=== PATIENT | female | born 1945 | race African-American/Black ===

== ENCOUNTER 2018-09-17 12:05 | Observation (INO) | payer MEDICARE, BC, MEDICAID ==
[2018-09-17 12:41] LABS: #Eosinphils 0.1 thou/uL (0.0-0.7); #Monocytes 0.4 thou/uL (0.11-0.59); #Neutrophils 4.3 thou/uL (1.40-6.50); %Basophils 0.1 % (0.0-1.0); %Eosinophils 1.1 % (0.0-10.0); %Lymphocytes 29.1 % (21.0-51.0); %Monocytes 5.6 % (0.0-10.0); %Neutrophils 64.2 % (42.0-75.0); Hemoglobin 10.3 g/dL (12.0-16.0); Mean Corpuscular HGB CONC 29.2 g/dL (32.0-36.0); Mean Corpuscular Hemoglobin 23.2 pg (27.0-31.0); Mean Corpuscular Volume 79.7 fL (78.0-98.0); Mean Platelet Volume 12.7 fL (7.4-10.4); Platelet Count 171 thou/uL (130-400); RBC Distribution Width 17.6 % (11.5-14.5); Red Blood Cell (RBC) Count 4.44 mill/uL (4.20-5.40); White Blood Cell (WBC) Count 6.8 thou/uL (4.8-10.8)
[2018-09-17 12:54] LABS: ALT (SGPT) Less than 7 U/L (8-55); AST (SGOT) 6 U/L (5-34); Albumin 3.5 g/dL (3.4-4.8); Alkaline Phosphatase 81 U/L (40-150); Anion Gap 23 mmol/L (10-20); BUN (Urea Nitrogen) 11 mg/dL (9.8-20.1); Bilirubin, Total 0.4 mg/dL (0.2-1.2); Calc. Creatinine Clearance 0 mL/min (70-130); Calcium 9.1 mg/dL (7.8-10.44); Carbon Dioxide 14 mmol/L (23-31); Chloride 105 mmol/L (98-107); Estimated GFR-MDRD Greater than 90; Globulin 3.2 g/dL (2.4-3.5); Glucose 99 mg/dL (83-110); Potassium 3.5 mmol/L (3.5-5.1); Protein, Total 6.7 g/dL (6.0-8.3); Sodium 138 mmol/L (136-145)
--- NOTE | 2018-09-17 12:59 | CT ---
CT BRAIN WITHOUT CONTRAST: Date: 09/17/18 HISTORY: Seizure. Parkinson's disease. FINDINGS: Comparison made with exam of 05/29/13. Changes of chronic small vessel ischemic disease and cortical atrophy are stable. No evidence of infa rct, hemorrhage, midline shift, or abnormal extra-axial fluid collections are seen. The ventricular s ize is stable and the basilar cisterns are patent. The bony calvarium is intact. The visualized paran yarelis sinuses and mastoid air cells are well aerated. IMPRESSION: No CT evidence of acute intracranial process. POS: TPC
[2018-09-17 13:01] LABS: Anisocytosis SLIGHT = 6-15 cells (100X) (0-5/hpf); Hypochromia SLIGHT = 6-15 cells (100X) (0-5/hpf); Large Platelets SLIGHT; MDiff Complete? YES; Ovalocytes SLIGHT = 2-5 cells (100X) (0-1/hpf); Platelet Morphology Comment Appears Adequate; Poikilocytosis SLIGHT = 6-15 cells (100X) (0-5/hpf); Polychromasia SLIGHT = 2-3 cells (100X) (0-2/hpf); Schistocytes SLIGHT = 2-5 cells (100X) (0-1/hpf); Target Cells SLIGHT = 2-5 cells (100X) (0-1/hpf)
[2018-09-17] MEDS ORDERED: Ketorolac Tromethamine 30 MG/ML VIAL ONE (16:44)
[2018-09-17] MEDS ORDERED: Bisacodyl 5 MG TAB PO PRN ×2 (17:16)
[2018-09-17] MEDS ORDERED: Nitroglycerin 0.4 MG TAB (25 Tab Bottle) SL PRN (17:16)
[2018-09-17] MEDS ORDERED: Calcium Carbonate 500 MG ChewTAB PO PRN (17:16)
[2018-09-17] MEDS ORDERED: Diabetic Tussin 200 MG/10 ML UDCUP PO PRN (17:16)
[2018-09-17] MEDS ORDERED: cloNIDine 0.1 MG TAB PO PRN (17:16)
[2018-09-17] MEDS ORDERED: Senokot S 8.6-50 MG TAB PO PRN ×2 (17:16)
[2018-09-17] MEDS ORDERED: Ondansetron PF 4 MG/2 ML Vial IVP PRN (17:16)
[2018-09-17] MEDS ORDERED: Benzonatate 100 MG CAP PO PRN (17:16)
[2018-09-17] MEDS ORDERED: Sodium Chloride 0.65% Nasal 44 ML BOT EA NARE PRN (17:16)
[2018-09-17] MEDS ORDERED: hydrALAZINE 20 MG/ML VIAL SLOW IVP PRN (17:16)
[2018-09-17] MEDS ORDERED: Lorazepam 2 MG/ML VIAL SLOW IVP SCH (17:30)
--- NOTE | 2018-09-17 19:16 | HP ---
PRIMARY CARE PHYSICIAN: Anastacio Fountain MD CHIEF COMPLAINT: Seizure like activity. HISTORY OF PRESENTING ILLNESS: Ms. Hawkins is a 73-year-old female with past medical history of chronic debilitative, bed-bound state, as well as decubitus ulcers, Parkinson disease, hypertension, and GERD, who presented to the ER with above-mentioned complaint. History is mainly obtained by the patient's daughter present at the bedside. The patient speaks very slow and very little and she defers the history taking to the daughter. According to Ms. Hawkins is daughter, the patient is completely bed bound. She is not able to even sit up or stand up. She does not walk. She does not sit in the wheelchair. She has a home health care nurse, who comes for the wound care twice a week. At baseline, the patient has normal mentation, but speaks very little, but is otherwise appropriate. She has been showing some signs of memory loss recently, but is otherwise appropriate. She has history of movement disorders and today she started to have a significant tremors of her hand that started to involve the whole of her upper extremities. Her upper extremities are severely contracted. Her daughter reports that she witnessed this and later the patient did foam at mouth and her eyes rolled back. She then became unresponsive. She started to regain responsiveness by the time she was brought in to the hospital via EMS. En route in the EMS, her blood pressure was 150/20. She was 181/76 upon arrival to the hospital. In the hospital, a CT scan of the brain was done, which was unremarkable. She was not given anything specifically for seizures in the emergency room. She is now being admitted to Medicine Service for possible seizures. The daughter denies any recent illnesses. She states that the patient's appetite has been good. She has been having normal bowel movements. She has not been having any fever or chills. She has not been complaining of any chest pain, cough, shortness of breath, dysuria, frequency, or urgency. PAST MEDICAL HISTORY: 1. Parkinson disease. 2. Essential tremors. 3. Chronic bed-bound debilitative state. 4. Hypertension. The patient has stopped taking any medications. 5. Anxiety disorder. 6. Diverticulosis. 7. Internal hemorrhoids. 8. Overactive bladder. 9. Degenerative joint disease. 10. GERD. PAST SURGICAL HISTORY: 1. Tubal ligation. 2. Cholecystectomy. 3. Colonoscopy in 2012. 4. EGD in 2012. ALLERGIES: NONA INHIBITOR, CODEINE, AND SULFA. MEDICATIONS: As per the ER records, she is on following; 1. Ziprasidone 20 mg at bedtime. 2. Amitriptyline 20 mg at bedtime. 3. Carbidopa/levodopa 25/100 unknown dose. 4. Protonix 40 mg daily. CODE STATUS: Do not resuscitate or intubate. Discussed at length with the patient with the help of her daughter. The daughter also agrees to DNR status. SOCIAL HISTORY: She lives at home with her daughter who is the primary care provider. No surrogate decision maker pointed yet. She makes her own decisions. No history of drug, tobacco, or alcohol abuse. FAMILY HISTORY: Mother with colon cancer. REVIEW OF SYSTEMS: It is limited, but it is negative, but all other systems are largely negative except for those mentioned in the history and physical. Review of system gathering is difficult as the patient speaks very little. LABORATORY DATA: CBC shows hemoglobin 10.3, which is largely hypochromic microcytic. Otherwise, unremarkable. Serum chemistry showed bicarb at 14 and anion gap of 23. Rest unremarkable and within normal limits. CT scan of the brain by my review has no evidence of hemorrhage or mass. PHYSICAL EXAMINATION: VITAL SIGNS: Upon presentation; blood pressure 181/76, pulse of 78, respirations 20, temperature 98.7, and saturating 98% on room air. GENERAL: She is lying comfortably in bed with her eyes closed. She appears well-nourished and appropriate age. She speaks very little and very softly and defers most of the interview to her daughter. She appears to be awake, alert, and oriented x3. HEENT: Mucous membrane is slightly dry. No oropharyngeal exudate or erythema. Head is normocephalic and atraumatic. Pupils are equally reactive to light and accommodation. Extraocular movement intact. NECK: Supple without any lymphadenopathy, JVD, or bruit. CHEST: Clear to auscultation without any wheezing, rales, or rhonchi. HEART: Rate and rhythm is regular without any murmurs, rubs, or gallops. ABDOMEN: Soft, nontender, and nondistended with positive bowel sounds. EXTREMITIES: Free of any cyanosis, clubbing, or edema. She has contractures of both upper extremities and keep them flexed at the elbows over her chest. NEUROLOGIC: She is able to follow simple commands to only a limited extent. She appears to be weak and sleepy. No facial droop noticed. SKIN: Free of any cyanosis, clubbing, or edema. PSYCHIATRIC: Normal affect. IMPRESSION AND PLAN: 1. Seizure. I am not sure if this was a real seizure versus an extension of her movement and tremor disorder because of any other underlying metabolic issues. She does have metabolic anion gap acidosis. She appears dry on exam as well. At this time, we will obtain a urinalysis to rule out UTI as a cause of infection causing seizure-like activity. Meanwhile, we will start her on anti-seizure medication with Keppra b.i.d. and start rehydrating her with normal saline. We will also try to obtain an MRI of the brain if it is feasible with her contractors to rule out any structure abnormalities. Stroke is less likely. We will also get an EEG for the possible seizure and request Neurology consultation, defer the recommendations. 2. Uncontrolled hypertension. It seems like the patient has stopped taking her home medications. We will start her on low-dose amlodipine and monitor and adjust as needed. She will also be on p.r.n. antihypertensives. 3. Sacral decubitus. We will request consultation with Wound Care for continued wound care in the hospital. The patient does have a foul smell coming from her sacral area. She has been admitted for sacral wound infection in 2014. At this time, there is no evidence to suggest infection. Further as per the Wound Care team. 4. Parkinson disease. We will restart her home medication of carbidopa/levodopa once the dose is confirmed. 5. Anxiety and depression. No suicidal ideation. 6. Overactive bladder. 7. Gastroesophageal reflux disease. We will start Pepcid b.i.d. 8. History of internal hemorrhoids. Currently, no bleeding. 9. Anion gap metabolic acidosis likely secondary to dehydration, volume contraction. Start IV fluids. CODE STATUS: Do not resuscitate and intubate as above. DISPOSITION: Ms. Hawkins is currently being admitted to stroke floor in observation status. Estimated length of stay at this time is less than 2 midnights. Further management will depend upon her clinical course. We will get OT/PT evaluation as well as Speech Therapy evaluation for safe swallow. Job ID: [id number]
[2018-09-17] MEDS ORDERED: Lisinopril 5 MG TAB PO SCH (21:00)
[2018-09-17] MEDS ORDERED: Acetaminophen 325 MG TAB ONE (21:14)
[2018-09-17] MEDS ORDERED: Famotidine/PF 20 mg/2ml Vial ONE (22:09)
[2018-09-18] MEDS: Carbidopa/Levodopa 25-100 mg Tablet PO SCH ×5 (00:57→21:56)
[2018-09-18] MEDS: Amlodipine 5 MG TAB PO SCH ×3 (00:57→21:56)
[2018-09-18] MEDS: Sodium Chloride 0.9% 1,000 ML IV SCH ×2 (00:57→09:57)
[2018-09-18] MEDS: Famotidine/PF 20 mg/2ml Vial SLOW IVP SCH ×3 (00:58→21:56)
[2018-09-18] MEDS: Ziprasidone 20 MG CAP PO SCH ×2 (00:58→21:55)
[2018-09-18] MEDS: Famotidine 20 MG TAB PO SCH ×3 (00:58→21:55)
[2018-09-18] MEDS ORDERED: Prevnar 13-Val Conj/PF 0.5 ML SYRINGE IM ONE (01:00)
[2018-09-18 01:13] VITALS: BMI 23.4
[2018-09-18 05:58] LABS: #Lymphocytes 1.7 thou/uL (1.20-3.40); #Monocytes 0.6 thou/uL (0.11-0.59); #Neutrophils 5.9 thou/uL (1.40-6.50); %Basophils 0.6 % (0.0-1.0); %Eosinophils 0.4 % (0.0-10.0); %Lymphocytes 20.5 % (21.0-51.0); %Neutrophils 71.5 % (42.0-75.0); Anion Gap 13 mmol/L (10-20); BUN (Urea Nitrogen) 9 mg/dL (9.8-20.1); Calc. Creatinine Clearance 89 mL/min (70-130); Calcium 8.3 mg/dL (7.8-10.44); Carbon Dioxide 22 mmol/L (23-31); Chloride 104 mmol/L (98-107); Estimated GFR-MDRD Greater than 90; Glucose 82 mg/dL (83-110); Hemoglobin 9.6 g/dL (12.0-16.0); Mean Corpuscular HGB CONC 31.3 g/dL (32.0-36.0); Mean Corpuscular Hemoglobin 23.7 pg (27.0-31.0); Mean Corpuscular Volume 75.7 fL (78.0-98.0); Mean Platelet Volume 13.3 fL (7.4-10.4); Platelet Count 134 thou/uL (130-400); Potassium 3.1 mmol/L (3.5-5.1); RBC Distribution Width 16.6 % (11.5-14.5); Red Blood Cell (RBC) Count 4.03 mill/uL (4.20-5.40); Sodium 136 mmol/L (136-145); White Blood Cell (WBC) Count 8.3 thou/uL (4.8-10.8)
[2018-09-18 06:21] LABS: Bilirubin Negative (Negative); Blood, Urine Negative (Negative); Clarity CLOUDY (Clear); Glucose, Urine (Dipstick) Negative (Negative); Leukocyte Small (Negative); Nitrite Negative (Negative); Protein, Urine (Dipstick) 30 mg/dL (Neg-Trace); Specific Gravity, Urine 1.015 (1.002-1.036); Urobilinogen 0.2 mg/dL (0.2-1.0); pH, Urine 6.5 (5.0-9.0)
[2018-09-18 06:23] LABS: Bacteria/HPF 1+ HPF (None Seen); Hyaline Casts/LPF 0-3 HYALINE CAST LPF (0-3 Hyaline); Squamous Epithelial 0-3 HPF (0-3)
[2018-09-18 06:43] LABS: Yeast-AUWi Flag 52.5 (0-25.0)
[2018-09-18 06:46] LABS: Yeast-All Forms None Seen HPF (None Seen)
[2018-09-18] MEDS: Enoxaparin Sodium 40 MG/0.4 ML SYRINGE SC SCH (10:03)
[2018-09-18] MEDS: Acetaminophen 325 MG TAB PO PRN ×2 (12:47→22:03)
--- NOTE | 2018-09-18 15:45 | PDOC.PN ---
- Subjective Encounter Start Date: 09/18/18 Encounter Start Time: 15:35 Subjective: f/u for ? seizure-like activity on current Keppra. No reported seizure -: activity and pt at baseline currently. - Objective Resuscitation Status - Order Detail: 09/17/18 18:13 Resuscitation Status Routine Resuscitation Status: DNAR: NO Resuscitation Discussed with: discussed w pt and daughter LILIAN Reviewed: Yes Vital Signs & Weight: Vital Signs (12 hours) Temp Pulse Pulse Pulse Resp BP BP 09/18/18 11:56 99.1 F 71 18 09/18/18 10:49 123/59 L 09/18/18 10:14 74 75 128/66 09/18/18 10:03 71 153/77 H 09/18/18 08:12 09/18/18 07:55 98.8 F 71 18 09/18/18 04:00 98.3 F 62 18 BP BP Pulse Ox 09/18/18 11:56 117/51 L 99 09/18/18 10:49 09/18/18 10:14 130/60 09/18/18 10:03 09/18/18 08:12 153/77 H 09/18/18 07:55 99 09/18/18 04:00 145/67 H 98 Weight Admit Weight 140 lb 12.8 oz Weight 140 lb 12.8 oz I&O: 09/17/18 09/18/18 09/19/18 06:59 06:59 06:59 Intake Total 463 647 Output Total 270 Balance 193 647 Result Diagrams: 09/19/18 05:16 09/19/18 05:16 Additional Labs: Laboratory Tests 09/17/18 09/17/18 12:25 12:25 Hgb 10.3 L Potassium 3.5 Radiology Reviewed by me: Yes (CT brain - no acute process) EKG Reviewed by me: Yes (Tele - SR) Phys Exam - Physical Examination Constitutional: NAD HEENT: PERRLA, sclera anicteric, oral pharynx no lesions Neck: no nodes, no JVD, supple, full ROM Respiratory: no wheezing, no rales, no rhonchi, clear to auscultation bilateral Cardiovascular: RRR, no significant murmur, no rub, gallop Gastrointestinal: soft, non-tender, no distention, positive bowel sounds contractures of UE's Musculoskeletal: no edema, pulses present Neurological: normal sensation Skin: normal turgor, cap refill <2 seconds Dx/Plan (1) Seizure Code(s): R56.9 - UNSPECIFIED CONVULSIONS Status: Acute Comment: Suspected, continue Keppra 500mg BID, await EEG results, Neuro consult pending (2) UTI (urinary tract infection) Status: Acute Comment: Start Rocephin 1gm IV daily, await final Ucx results (3) Hypokalemia Code(s): E87.6 - HYPOKALEMIA Status: Acute Comment: Klor-con 40meq BID, repeat K+ level in am (4) Bedbound Code(s): Z74.01 - BED CONFINEMENT STATUS Status: Chronic Comment: Turning protocol, wound care (5) Parkinson disease Code(s): G20 - PARKINSON'S DISEASE Status: Chronic Comment: Continue Sinemet - Plan plan discussed w/ family, continue antibiotics, social media marketing analyst, DVT proph w/ SCDs Stable currently -: Continue Keppra 500mg BID -: Klor-con 40meq BID -: Neurology consult pending -: EEG pending * AM lab: BMP, CBC * Likely home in am
[2018-09-18] MEDS ORDERED: cefTRIAXone\\ROCEPHIN 1 GM in Sodium Chloride 0.9% 100 ML IVPB SCH (16:00)
[2018-09-18] MEDS ORDERED: Zonisamide 100 MG CAP PO SCH (21:00)
--- NOTE | 2018-09-18 23:02 | CON ---
DATE OF CONSULTATION: 09/18/2018 CONSULTING PHYSICIAN: Hospitalist Services. 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 PLAN: 1. Discontinue Keppra. 2. Zonegran 100 mg at bedtime. HISTORY OF PRESENT ILLNESS: Ms. Hawkins is a 73-year-old female with a history of degenerative brain issues with parkinsonian features and daughter reports she has a component of dementia with hallucinations and poor memory. She was witnessed to have what appeared to be a tonic-clonic seizure with frothing at the mouth. She had never done this before. She is cared for at home in is essentially bedfast. She requires assistance for all her care. She had a CT scan of the brain on admission, which showed some small vessel ischemic changes. Her lab work including a CBC, comprehensive metabolic panel, and urinalysis were all unremarkable. Vital Signs have been stable and she has been afebrile. The patient is without any other particular complaints at this point. PAST MEDICAL HISTORY: Parkinson dementia. SOCIAL HISTORY: She lives at home with care of family. ALLERGIES: CODEINE. MEDICATION LIST: Reviewed. FAMILY HISTORY: Noncontributory. REVIEW OF SYSTEMS: Not obtainable secondary to dementia. PHYSICAL EXAMINATION: GENERAL: She is a reasonably healthy-appearing elderly lady, lying in bed with constant rhythmic movements. HEENT: Pupils are equal and reactive. Conjunctivae clear. Oropharynx clear. NECK: Supple. No lymphadenopathy. EXTREMITIES: No cyanosis or edema. NEUROLOGIC: She was alert and conversant. She reported pain if she attempted to move her extremities. Her speech seemed to be clear. There was no facial asymmetry. Both upper extremities were contracted as well as both hands in a clenched posture. She cannot extend her elbows. She had constant irregular tremors of both upper extremities. Lower extremities were extended. No abnormal movements were seen there. Gait was not testable. SUMMARY: This is an elderly lady with Parkinson dementia process, who presented with her first seizure. Zonegran may be a good choice to help with her tremors as well as prevent seizure activity. I would be happy to follow up with her as an outpatient. Job ID: [id number]
[2018-09-19 05:55] LABS: Anion Gap 13 mmol/L (10-20); BUN (Urea Nitrogen) 11 mg/dL (9.8-20.1); Calc. Creatinine Clearance 84 mL/min (70-130); Calcium 8.7 mg/dL (7.8-10.44); Carbon Dioxide 23 mmol/L (23-31); Chloride 105 mmol/L (98-107); Estimated GFR-MDRD Greater than 90; Glucose 80 mg/dL (83-110); Iron 68 ug/dL (50-170); Iron Binding Capacity, Total 203 mcg/dL (265-497); Potassium 3.5 mmol/L (3.5-5.1); Sodium 137 mmol/L (136-145)
[2018-09-19 06:18] LABS: Band 2 % (5-11); Hemoglobin 9.2 g/dL (12.0-16.0); Lymphocytes 13 % (21-51); MDiff Complete? YES; Mean Corpuscular HGB CONC 31.4 g/dL (32.0-36.0); Mean Corpuscular Hemoglobin 23.3 pg (27.0-31.0); Mean Corpuscular Volume 74.3 fL (78.0-98.0); Mean Platelet Volume 12.7 fL (7.4-10.4); Monocytes 2 % (0-10); Neutrophil 82 % (42-75); Platelet Count 129 thou/uL (130-400); Platelet Morphology Comment Appears Adequate; RBC Distribution Width 17.6 % (11.5-14.5); Red Blood Cell (RBC) Count 3.93 mill/uL (4.20-5.40); White Blood Cell (WBC) Count 9.4 thou/uL (4.8-10.8)
[2018-09-19] MEDS: Enoxaparin Sodium 40 MG/0.4 ML SYRINGE SC SCH (09:03)
[2018-09-19] MEDS: Carbidopa/Levodopa 25-100 mg Tablet PO SCH ×2 (09:04→12:18)
[2018-09-19] MEDS: Amlodipine 5 MG TAB PO SCH (09:04)
[2018-09-19] MEDS: Famotidine 20 MG TAB PO SCH (09:04)
[2018-09-19] MEDS: Famotidine/PF 20 mg/2ml Vial SLOW IVP SCH (09:06)
--- NOTE | 2018-09-19 10:16 | EEG ---
Referring Physician: Jolly MACE EEG # [id number] TEST TYPE: ROUTINE PORTABLE INPATIENT REPORT: AN EEG USING THE INTERNATIONAL TEN-TWENTY SYSTEM OF ELECTRODE PLACEMENT WAS PERFORMED. The best waking background is an 8 hertz Alpha frequency. The dominant frequency is 7 hertz Theta. EMG artifact obscures portions of the record. Photic stimulation was unremarkable. No epileptiform features were seen. IMPRESSION: THIS IS A NORMAL EEG FOR AGE. Junior Business Analyst: OCTAVIANO Account Underwriter: EEG.BELLA MAYO
[2018-09-19 12:21] VITALS: BP 110/52; TEMP 99.7
--- NOTE | 2018-09-19 15:13 | DIS ---
DATE OF ADMISSION: 09/17/2018 DATE OF DISCHARGE: 09/19/2018 DISCHARGE DIAGNOSES: 1. Seizure disorder. 2. Urinary tract infection, organism not identified. 3. Hypokalemia, resolved. 4. Advanced Parkinson disease. 5. Bedbound status. CONSULTATIONS: Dr. Kendell Garcia with Neurology Service. PERTINENT LABORATORY AND X-RAY FINDINGS: Potassium ranged between 3.1 to 3.5. Serum iron level 68, TIBC 203, and ferritin 724. CBC showed a hemoglobin ranging between 9.[address] of the brain without contrast dated 09/17/2018, showed no acute intracranial process. HOSPITAL COURSE: The patient was observed on the Stroke Unit after initially presenting with seizure activity in the context of advanced Parkinson disease. The patient was initially admitted to the Stroke Unit after presenting with seizure-like activity in the context of advanced Parkinson disease. The patient underwent CT imaging of the brain showing no acute intracranial process and the patient was noted with tremor-like activity with questionable influence from her advanced Parkinson disease. The patient was treated for underlying urinary tract infection. However, no specific organism was identified on urine culture. The patient was treated with IV Rocephin and transitioned to oral Omnicef to complete antibiotic therapy. The patient was initially placed on Keppra 500 mg b.i.d. However, after evaluation by the Neurology Service, the patient was transitioned to zonisamide 100 mg at bedtime. The patient remained clinically stable under observation, tolerating regular oral intake, and had baseline functional mental status. The patient's vital signs remains clinically stable and telemetry monitoring showed a sinus mechanism without acute arrhythmia or dysrhythmia. I have examined the patient at the time of discharge and discussed followup instructions with the patient and her . Family verbalized understanding and in agreement and ready for discharge on 09/19/2018. DISCHARGE MEDICATIONS: 1. Sinemet 25/100 mg 2 tablets p.o. q.i.d. 2. Protonix 40 mg p.o. daily. 3. Sertraline 100 mg p.o. daily. 4. Geodon 40 mg p.o. at bedtime. 5. Omnicef 300 mg p.o. b.i.d. x5 days. 6. Zonisamide 100 mg p.o. at bedtime. FOLLOWUP: The patient to follow up with her primary care provider, Dr. Daniel Santos within 7 days of discharge. The patient will follow up with Dr. Kendell Garcia with Neurology Service and to call his office for appointment, time, and date. CONDITION ON DISCHARGE: Stable. ACTIVITY: Ad-constance. DIET: Heart healthy. CODE STATUS: Do not attempt resuscitation. SPECIAL INSTRUCTIONS: The patient to resume Home Health Services with [facility] on discharge. DISPOSITION: To home on 09/19/2018. Job ID: [id number]
== END 2018-09-19 13:23 | disposition home health service (06) ==
LOC: ERS 12:05 → ERHOLD 15:06 → 2SE 23:27
PROVIDERS: ADMIT Internal Medicine; ATTEND Internal Medicine
DX: R56.9 Unspecified convulsions (principal); G20 Parkinson's disease; F02.80 Dementia in other diseases classified elsewhere, unspecified severity, without behavioral disturbance, psychotic disturbance, mood disturbance, and anxiety; I10 Essential (primary) hypertension; K21.9 Gastro-esophageal reflux disease without esophagitis; L89.159 Pressure ulcer of sacral region, unspecified stage; F41.8 Other specified anxiety disorders; M19.90 Unspecified osteoarthritis, unspecified site; N39.0 Urinary tract infection, site not specified; E87.6 Hypokalemia; Z88.5 Allergy status to narcotic agent; Z74.01 Bed confinement status; Z66 Do not resuscitate; Z88.2 Allergy status to sulfonamides; Z88.8 Allergy status to other drugs, medicaments and biological substances; Z79.899 Other long term (current) drug therapy
CPT/HCPCS: 70450; 80048 ×2; 80053; 81001; 82728; 83540; 83550; 85007; 85025 ×2; 85027; 90670; 95816; 95819; 96361 ×2; 96365; 96367; 96372 ×2; 96375 ×2; 97139 ×5; 99285; G0009; G0378 ×2; 36415; 90471; 96374; J0696; J1650; J1885; J1953; J2060; J3490; S0028

== ENCOUNTER 2018-09-27 10:16 | Observation (INO) | payer MEDICARE, BC, MEDICAID ==
[2018-09-27] MEDS ORDERED: Lorazepam 2 MG/ML VIAL ONE ×3 (10:22→11:30)
[2018-09-27 11:11] LABS: Bilirubin Small (Negative); Blood, Urine Negative (Negative); Clarity CLEAR (Clear); Glucose, Urine (Dipstick) Negative (Negative); Leukocyte Trace (Negative); Nitrite Negative (Negative); Protein, Urine (Dipstick) 100 mg/dL (Neg-Trace); Specific Gravity, Urine 1.029 (1.002-1.036); Urobilinogen 0.2 mg/dL (0.2-1.0)
[2018-09-27 11:13] LABS: Bacteria/HPF None Seen HPF (None Seen); Hyaline Casts/LPF 4-6 HYALINE CAST LPF (0-3 Hyaline); Pathc Cast-AUWi Flag 0.95 (0-2.49); Squamous Epithelial 0-3 HPF (0-3); WBC/HPF 0-3 HPF (0-3)
[2018-09-27 11:24] LABS: #Lymphocytes 0.7 thou/uL (1.20-3.40); #Monocytes 0.3 thou/uL (0.11-0.59); #Neutrophils 7.7 thou/uL (1.40-6.50); %Basophils 0.1 % (0.0-1.0); %Eosinophils 0.1 % (0.0-10.0); %Lymphocytes 7.5 % (21.0-51.0); %Monocytes 3.9 % (0.0-10.0); %Neutrophils 88.5 % (42.0-75.0); Hemoglobin 7.7 g/dL (12.0-16.0); Mean Corpuscular HGB CONC 30.6 g/dL (32.0-36.0); Mean Corpuscular Hemoglobin 22.4 pg (27.0-31.0); Mean Corpuscular Volume 73.2 fL (78.0-98.0); Platelet Count 180 thou/uL (130-400); Red Blood Cell (RBC) Count 3.43 mill/uL (4.20-5.40); White Blood Cell (WBC) Count 8.6 thou/uL (4.8-10.8)
[2018-09-27 11:28] LABS: Actual Bicarbonate (HCO3a) 25.6 mEq/L (22-28); Analyzer IN Cardio ER; Base Excess (BEa) 1.7 mEq/L (-2.0 to +3.0); CO2 Tension 36.9 mmHg (35.0-45.0); Calcium, Ionized 1.15 mmol/L (1.12-1.30); Carboxyhemoglobin (COHb) 0.4 gm% (0.0-3.0); Hemoglobin (Hb) 7.7 g/dL (12.0-16.0); O2 Tension (PaO2) 67.4 mmHg (> 70.0); pH, Arterial 7.46 (7.35-7.45)
[2018-09-27 11:29] LABS: ALV-art Gradient 36.205 (0-20); Puncture Site RRA
--- NOTE | 2018-09-27 11:35 | RAD ---
Portable frontal chest radiograph: 09/27/2018 COMPARISON: 06/15/2014 HISTORY: Found down, tremors FINDINGS: Lungs are clear. Heart and mediastinal contours appear within normal limits. There is ather osclerotic calcification of the aortic arch. Soft tissue artifact overlies the superior mediastinum and the base of the neck. Clips in the right upper quadrant suggest prior cholecystectomy. IMPRESSION: No acute findings.
[2018-09-27 11:39] LABS: ALT (SGPT) Less than 7 U/L (8-55); AST (SGOT) 7 U/L (5-34); Albumin 3.4 g/dL (3.4-4.8); Alkaline Phosphatase 96 U/L (40-150); Anion Gap 16 mmol/L (10-20); BUN (Urea Nitrogen) 18 mg/dL (9.8-20.1); Bilirubin, Total 0.3 mg/dL (0.2-1.2); CK (CPK) 368 U/L (29-168); Calc. Creatinine Clearance 0 mL/min (70-130); Calcium 8.7 mg/dL (7.8-10.44); Carbon Dioxide 23 mmol/L (23-31); Chloride 108 mmol/L (98-107); Estimated GFR-MDRD Greater than 90; Globulin 2.8 g/dL (2.4-3.5); Glucose 104 mg/dL (83-110); Protein, Total 6.2 g/dL (6.0-8.3); Sodium 144 mmol/L (136-145)
[2018-09-27 11:40] LABS: Acetaminophen Less than 6.0 mcg/mL (10.0-30.0); Alcohol Less than 10 mg/dL (Less than 10); Salicylate Less than 8.0 mg/dL (15.0-30.0)
[2018-09-27 11:48] LABS: Anisocytosis SLIGHT = 6-15 cells (100X) (0-5/hpf); Elliptocytes SLIGHT = 2-5 cells (100X) (0-1/hpf); Hypochromia SLIGHT = 6-15 cells (100X) (0-5/hpf); Microcytosis SLIGHT = 6-15 cells (100X) (0-5/hpf); Platelet Morphology Comment Appears Adequate; Poikilocytosis SLIGHT = 6-15 cells (100X) (0-5/hpf); Tear Drops SLIGHT = 2-5 cells (100X) (0-1/hpf)
--- NOTE | 2018-09-27 11:49 | CT ---
Head CT without contrast 09/27/2018: COMPARISON: 09/17/2018 HISTORY: Found down, tremors TECHNIQUE: Axial CT imaging at 5 mm intervals from vertex through skull base without contrast FINDINGS: Imaged paranasal sinuses and mastoid air cells well-aerated. No displaced calvarial fractur e. There is atherosclerotic calcification of the cavernous carotid arteries. Stable diffuse cerebral volume loss with associated prominence of the CSF containing spaces. Stable p eriventricular and deep white matter hypodensity, evidence of small vessel disease. No intracranial hemorrhage, midline shift, or mass effect. IMPRESSION: Stable chronic findings as above. No intracranial hemorrhage noted.
[2018-09-27] MEDS ORDERED: Fosphenytoin Sodium 1,250 MG in Sodium Chloride 0.9% 50 ML IVPB SCH (12:15)
[2018-09-27] MEDS ORDERED: EPINEPHrine 1 MG/10 ML Abboject SYRINGE ONE (13:28)
[2018-09-27] MEDS ORDERED: Ondansetron PF 4 MG/2 ML Vial IVP PRN ×2 (14:29)
[2018-09-27] MEDS ORDERED: cloNIDine 0.1 MG TAB PO PRN (14:29)
[2018-09-27] MEDS ORDERED: Senokot S 8.6-50 MG TAB PO PRN (14:29)
[2018-09-27] MEDS ORDERED: Bisacodyl 5 MG TAB PO PRN (14:29)
[2018-09-27] MEDS ORDERED: Bisacodyl 10 MG SUPP PR PRN (14:29)
[2018-09-27] MEDS ORDERED: Acetaminophen 325 MG TAB PO PRN (14:29)
[2018-09-27] MEDS ORDERED: Sodium Chloride 0.65% Nasal 44 ML BOT EA NARE PRN (14:29)
[2018-09-27] MEDS ORDERED: Benzonatate 100 MG CAP PO PRN (14:29)
[2018-09-27] MEDS ORDERED: Acetaminophen 650 MG Suppository PR PRN (14:29)
[2018-09-27] MEDS ORDERED: hydrALAZINE 20 MG/ML VIAL SLOW IVP PRN (14:29)
[2018-09-27] MEDS ORDERED: Diabetic Tussin 200 MG/10 ML UDCUP PO PRN (14:29)
[2018-09-27] MEDS ORDERED: Potassium Chloride 40 MEQ in Premix Bag 1 BAG IVPB SCH (14:30)
[2018-09-27] MEDS ORDERED: Potassium Chloride 40 MEQ in Sodium Chloride 0.9% 250 ML 250 ML IVPB SCH (15:00)
--- NOTE | 2018-09-27 15:01 | HP ---
PRIMARY CARE PHYSICIAN: Anastacio Fountain MD CHIEF COMPLAINT: Seizure-like activity and then subsequent unresponsiveness. HISTORY OF PRESENTING ILLNESS: Ms. Hawkins is a 73-year-old Afro-[place] female, who was recently admitted to our facility late part of last month on 09/17/2018 with similar complaints and was discharged on 09/24/2018. She was worked up for seizure at that time and was seen by Dr. Garcia from Neurology and underwent an EEG, which was unremarkable. She has history of advanced Parkinson disease and was found to have a urinary tract infection at that time as well. She was started on zonisamide 100 mg at bedtime and was discharged home. She came back to the emergency room today when her thought that she was having another seizure-like episode. The is not at bedside at this point, but her daughter is. The daughter last saw her mother last night, but has been at work all this morning. According to the daughter, her mother has been her usual self up until at least last night. According to the ER physician, the reported some seizure-like activities and noticed that she was difficult to wake up. The patient at baseline is bedbound and has been having worsening Parkinson's with dementia-like features. She also has history of movement disorder. Nevertheless, she was brought to the emergency room and en route her blood pressure was 167/91, pulse of 77. She was not really waking up for the EMS staff. She underwent general evaluation in the ER and was somewhat combative, so she received Ativan x2 and a dose of fosphenytoin. She promptly dropped her blood pressure to systolic 50s and 60s after that for which she received epinephrine with improvement in her blood pressure systolic 90s. She is now being admitted for further workup for possible seizure-like activity as well as encephalopathy of unclear etiology. CT scan and chest x-ray were done in the emergency room and are negative for any acute changes. Her lab examination including CBC, ABG, serum chemistries, urinalysis are within normal limit more or less. PAST MEDICAL HISTORY: The same as dictated by myself on the H and P dated on 09/17/2018, nothing has changed. PAST SURGICAL HISTORY: The same as dictated by myself on the H and P dated on 09/17/2018, nothing has changed. FAMILY HISTORY: The same as dictated by myself on the H and P dated on 09/17/2018, nothing has changed. SOCIAL HISTORY: The same as dictated by myself on the H and P dated on 09/17/2018, nothing has changed. ALLERGIES: INCLUDE CODEINE. HOME MEDICATIONS: As listed in the ER record, 1. Risperidone 20 mg at bedtime. 2. Amitriptyline 10 mg two tablets at bedtime. 3. Carbidopa-levodopa 25/100 at bedtime. 4. Protonix 40 mg daily. This list needs to be further clarified. 5. She was also discharged on zonisamide 100 mg p.o. at bedtime on . REVIEW OF SYSTEMS: Unobtainable as the patient is quite somnolent at this point, after dropping her blood pressure to 50s and 60s and after receiving 4 mg of Ativan. LABORATORY DATA: CBC shows WBCs 8.6, hemoglobin 7.7, platelet count 180. Her last hemoglobin was 9.2 on 09/19/2018. Her baseline hemoglobin is anywhere from 8.8 to 10.3. ABG shows pH of 7.46, pCO2 of 36, pO2 of 67. Serum chemistry showed potassium of 3.0, chloride 108, otherwise unremarkable. Creatine kinase is 368. Cardiac enzymes, ammonia level within normal limits. Urinalysis showed trace leukocyte esterase, otherwise normal. Serum salicylate acetaminophen and alcohol levels are within normal limits. IMAGING STUDIES: Chest x-ray by my review shows no evidence of pleural effusion, edema, or infiltrate. CT scan of the brain shows stable findings without any intracranial hemorrhage. PHYSICAL EXAMINATION: VITAL SIGNS: Upon presentation blood pressure 180/92, pulse of 78, respirations 19, saturating 99% on room air, and temperature rectal 99.8. GENERAL: She is somnolent and difficult to wake up at this time. She is largely unresponsive, but in no acute distress. She has chronic contractures of her extremities. HEENT: Mucous membrane is slightly dry. Pupils are sluggishly reactive to light. Head is normocephalic and atraumatic. No oropharyngeal exudate or erythema. NECK: Supple without any lymphadenopathy, JVD, or bruit. CHEST: Clear to auscultation without any wheezing, rales, or rhonchi. Rate rhythm is regular without any murmurs, rubs, or gallops. ABDOMEN: Soft, nontender, nondistended, with positive bowel sound. EXTREMITIES: Showed spastic rigidity of upper and lower extremities. NEUROLOGICAL: No clonus, but it is limited because of the patient's unresponsiveness. Pupils were equally reactive to light bilaterally. SKIN: Free of any rashes or bruises. IMPRESSION AND PLAN: 1. Encephalopathy. I am not sure if this is just worsening of her Parkinson disease versus if she has some sort of toxic metabolic encephalopathy because she actually has had a seizure. Her seizure workup was unremarkable just a few weeks ago. At this time, we will continue her zonisamide and continue supportive care and request consultation with Neurology for further recommendations. She is hemodynamically stable at this time. Blood cultures have been obtained in the ER and we will follow the results. No other evidence to suggest infection or sepsis. We will replace her potassium and check magnesium as well. We will start her on some normal saline with potassium and keep her n.p.o. until she is more awake to be able to swallow safely. 2. Seizure-like activity. I think this is the patient's movement disorder that she has a diagnosis of for many years. She will be continued on her zonisamide. Recent EEG and seizure workup were negative. 3. Debility and bedbound status. 4. Parkinson disease. We will restart her carbidopa and levodopa and check the levels. 5. Sacral decubitus. Continue wound care while in the hospital. No evidence to suggest infection or sepsis because of that. 6. History of overactive bladder. 7. Gastroesophageal reflux disease. Continue Pepcid b.i.d. while in hospital. CODE STATUS: Do not resuscitate or intubate once again confirmed from her daughter present at bedside. DISPOSITION: Ms. Hawkins is currently being admitted under observation status for workup for seizure-like activity and possibly unresponsiveness. Estimated length of stay at this time is less than 2 midnights. Further management will depend upon her clinical course and neurology recommendations. Job ID: [id number]
[2018-09-27 16:42] VITALS: BMI 25.2
[2018-09-27] MEDS ORDERED: Zonisamide 100 MG CAP PO SCH (21:00)
[2018-09-27] MEDS: 1/2 NS w/KCL 20 mEq 1,000 ML IV SCH (21:50)
[2018-09-28 05:41] LABS: #Lymphocytes 0.9 thou/uL (1.20-3.40); #Monocytes 0.4 thou/uL (0.11-0.59); %Basophils 0.3 % (0.0-1.0); %Eosinophils 0.1 % (0.0-10.0); %Lymphocytes 9.8 % (21.0-51.0); %Monocytes 4.2 % (0.0-10.0); %Neutrophils 85.6 % (42.0-75.0); Hemoglobin 7.3 g/dL (12.0-16.0); Mean Corpuscular HGB CONC 31.2 g/dL (32.0-36.0); Mean Corpuscular Hemoglobin 22.9 pg (27.0-31.0); Mean Corpuscular Volume 73.4 fL (78.0-98.0); Mean Platelet Volume 12.7 fL (7.4-10.4); Platelet Count 159 thou/uL (130-400); RBC Distribution Width 19.1 % (11.5-14.5); Red Blood Cell (RBC) Count 3.19 mill/uL (4.20-5.40); White Blood Cell (WBC) Count 9.3 thou/uL (4.8-10.8)
[2018-09-28 05:57] LABS: Anion Gap 14 mmol/L (10-20); BUN (Urea Nitrogen) 18 mg/dL (9.8-20.1); Calc. Creatinine Clearance 86 mL/min (70-130); Carbon Dioxide 20 mmol/L (23-31); Chloride 115 mmol/L (98-107); Estimated GFR-MDRD Greater than 90; Glucose 75 mg/dL (83-110); Sodium 145 mmol/L (136-145)
[2018-09-28] MEDS: Enoxaparin Sodium 40 MG/0.4 ML SYRINGE SC SCH (09:17)
[2018-09-28] MEDS: LEVODOPA PO SCH ×2 (11:06→11:07)
[2018-09-28] MEDS: CARBIDOPA PO SCH ×2 (11:06→11:07)
[2018-09-28] MEDS: Carbidopa/Levodopa 25-100 mg Tablet PO SCH ×3 (11:47→20:07)
[2018-09-28] MEDS: 1/2 NS w/KCL 20 mEq 1,000 ML IV SCH (11:47)
--- NOTE | 2018-09-28 16:42 | PDOC.PN ---
- Subjective Encounter Start Date: 09/28/18 Encounter Start Time: 16:39 Patient lying in bed with family at bedside. She appears contracted, but no acute distress at this time. Neurology increase home medication, workup unremarkable up to this point. She will be started on pureed food according to speech therapy recommendations. - Objective Resuscitation Status - Order Detail: 09/27/18 14:28 Resuscitation Status Routine Resuscitation Status: DNAR: NO Resuscitation Discussed with: discussed w pt's daughter LILIAN Reviewed: Yes Vital Signs & Weight: Vital Signs (12 hours) Temp Pulse Resp BP BP Pulse Ox 09/28/18 15:57 98.7 F 68 20 127/56 L 100 09/28/18 14:31 122/46 L 09/28/18 12:52 63 178/72 H 09/28/18 12:42 172/78 H 09/28/18 11:58 99.1 F 63 18 190/76 H 99 09/28/18 07:42 98.2 F 72 18 161/67 H 100 Weight Admit Weight 138 lb Weight 138 lb 2 oz I&O: 09/27/18 09/28/18 09/29/18 06:59 06:59 06:59 Intake Total 1000 Output Total 150 Balance -150 1000 Result Diagrams: 09/28/18 05:26 09/28/18 05:26 Radiology Reviewed by me: Yes Phys Exam - Physical Examination Constitutional: NAD HEENT: moist MMs, oral pharynx no lesions Neck: supple Respiratory: no wheezing, clear to auscultation bilateral Cardiovascular: RRR, no significant murmur Gastrointestinal: soft, no distention, positive bowel sounds Musculoskeletal: pulses present Contraction noted with spastic rigidity Lymphatic: no nodes Skin: cap refill <2 seconds Deviation from normal: Stage 3 pressure ulcer noted Dx/Plan (1) Sacral decubitus ulcer Status: Acute (2) Bedbound Code(s): Z74.01 - BED CONFINEMENT STATUS Status: Chronic Comment: Turning protocol, wound care (3) Parkinson disease Code(s): G20 - PARKINSON'S DISEASE Status: Chronic - Plan cont current plan of care, plan discussed w/ family, speech therapy, DVT proph w /lovenox * Continue new increased dose per Neurology * CT shows no acute abnormality * Wound care following for stage 3 sacral wound * Continue other home meds * Speech therapy recommending pureed food * Likely discharged in the am
[2018-09-28] MEDS ORDERED: Zonisamide 100 MG CAP PO SCH (21:00)
[2018-09-29] MEDS: 1/2 NS w/KCL 20 mEq 1,000 ML IV SCH (01:12)
[2018-09-29] MEDS: Carbidopa/Levodopa 25-100 mg Tablet PO SCH ×2 (09:12→12:22)
[2018-09-29] MEDS: Enoxaparin Sodium 40 MG/0.4 ML SYRINGE SC SCH (09:13)
[2018-09-29 11:37] VITALS: BP 129/74; TEMP 98.9
== END 2018-09-29 13:25 | disposition home health service (06) ==
LOC: ERS 10:16 → ERHOLD 13:27 → 2SE 15:30 → 2SW 09-28 11:59 → 2SE 09-28 17:53
PROVIDERS: ADMIT Internal Medicine; ATTEND Internal Medicine
DX: G93.40 Encephalopathy, unspecified (principal); G20 Parkinson's disease; I65.29 Occlusion and stenosis of unspecified carotid artery; R53.81 Other malaise; L89.159 Pressure ulcer of sacral region, unspecified stage; K21.9 Gastro-esophageal reflux disease without esophagitis; Z79.899 Other long term (current) drug therapy
CPT/HCPCS: 51701; 70450; 71045; 80048; 80307; 82140; 82550; 82805; 83735 ×2; 84484; 85025; 87040; 93005; 94760; 96361; 96365; 96366 ×3; 96367; 96372 ×2; 96375 ×2; 97139 ×3; 99285; G0378 ×2; 36415; 80053; 81003; 81015; 84443; 96374; A4353; J0171; J0360; J1650; J2060; J3475; J3480; J3490; J7050; Q2009

== ENCOUNTER 2018-10-02 13:54 | Emergency (ER) | payer MEDICARE, BC, OTHER ==
--- NOTE | 2018-10-02 14:48 | RAD ---
XR Chest 1 View Portable HISTORY: Cough and fever COMPARISON: 09/27/2018 study. FINDINGS: The patient is rotated. The heart size is enlarged. There are atherosclerotic changes of ao rta. The lungs are clear of infiltrates. There are no signs of failure. IMPRESSION: Mild cardiomegaly.
[2018-10-02 14:53] LABS: #Lymphocytes 1.5 thou/uL (1.20-3.40); #Monocytes 0.4 thou/uL (0.11-0.59); #Neutrophils 8.6 thou/uL (1.40-6.50); %Basophils 0.1 % (0.0-1.0); %Eosinophils 0.5 % (0.0-10.0); %Lymphocytes 14.2 % (21.0-51.0); %Monocytes 3.4 % (0.0-10.0); %Neutrophils 81.9 % (42.0-75.0); Hemoglobin 7.2 g/dL (12.0-16.0); Mean Corpuscular Hemoglobin 22.9 pg (27.0-31.0); Mean Corpuscular Volume 73.9 fL (78.0-98.0); Mean Platelet Volume 11.1 fL (7.4-10.4); Platelet Count 156 thou/uL (130-400); RBC Distribution Width 19.1 % (11.5-14.5); Red Blood Cell (RBC) Count 3.14 mill/uL (4.20-5.40); White Blood Cell (WBC) Count 10.4 thou/uL (4.8-10.8)
[2018-10-02 15:06] LABS: Bilirubin Small (Negative); Blood, Urine Negative (Negative); Clarity CLEAR (Clear); Glucose, Urine (Dipstick) Negative (Negative); Leukocyte Negative (Negative); Nitrite Negative (Negative); Protein, Urine (Dipstick) Trace mg/dL (Neg-Trace); Specific Gravity, Urine 1.029 (1.002-1.036); Urobilinogen 0.2 mg/dL (0.2-1.0)
[2018-10-02 15:27] LABS: Albumin 2.7 g/dL (3.4-4.8)
[2018-10-02 15:28] LABS: Chloride 114 mmol/L (98-107); Potassium 3.2 mmol/L (3.5-5.1); Sodium 144 mmol/L (136-145)
[2018-10-02 15:29] LABS: Calcium 7.9 mg/dL (7.8-10.44)
[2018-10-02 15:30] LABS: Globulin 2.5 g/dL (2.4-3.5); Glucose 90 mg/dL (83-110); Protein, Total 5.2 g/dL (6.0-8.3)
[2018-10-02 15:31] LABS: Anion Gap 10 mmol/L (10-20); Bilirubin, Total 0.2 mg/dL (0.2-1.2); Carbon Dioxide 23 mmol/L (23-31)
[2018-10-02 15:32] LABS: Alkaline Phosphatase 154 U/L (40-150)
[2018-10-02 15:33] LABS: Calc. Creatinine Clearance 0 mL/min (70-130); Estimated GFR-MDRD Greater than 90
[2018-10-02 15:34] LABS: BUN (Urea Nitrogen) 12 mg/dL (9.8-20.1)
[2018-10-02 15:35] LABS: ALT (SGPT) Less than 7 U/L (8-55); AST (SGOT) 4 U/L (5-34)
[2018-10-02 15:40] LABS: CKMB 0.4 ng/mL (0-6.6)
== END 2018-10-02 20:05 | disposition home or self-care (01) ==
LOC: ERS 13:54
DX: R50.9 Fever, unspecified (principal); L89.324 Pressure ulcer of left buttock, stage 4; L89.314 Pressure ulcer of right buttock, stage 4; G40.909 Epilepsy, unspecified, not intractable, without status epilepticus; I10 Essential (primary) hypertension; Z79.899 Other long term (current) drug therapy
CPT/HCPCS: 36415; 51701; 71045; 80053; 81003; 82553; 83605; 84484; 85025; 87040; 87804; 93005; A4353